=== PATIENT | female | born 1985 | race Hispanic/Latino ===

== ENCOUNTER 2017-12-28 20:07 | Emergency (ER) | payer OTHER, SELFPAY ==
[2017-12-28 23:40] LABS: #Basophils 0.1 thou/uL (0.0-0.2); #Eosinphils 0.2 thou/uL (0.0-0.7); #Lymphocytes 2.7 thou/uL (1.20-3.40); #Monocytes 0.4 thou/uL (0.11-0.59); #Neutrophils 3.6 thou/uL (1.40-6.50); %Basophils 0.8 % (0.0-1.0); %Eosinophils 2.7 % (0.0-10.0); %Lymphocytes 38.9 % (21.0-51.0); %Monocytes 5.5 % (0.0-10.0); %Neutrophils 52.1 % (42.0-75.0); Hemoglobin 12.6 g/dL (12.0-16.0); Mean Corpuscular Volume 85.8 fl (81.0-99.0); Mean Platelet Volume 6.8 fL (7.4-10.4); Platelet Count 402 thou/uL (130-400); RBC Distribution Width 11.8 % (11.5-14.5); Red Blood Cell (RBC) Count 4.19 mill/uL (4.20-5.40); White Blood Cell (WBC) Count 6.8 thou/uL (4.8-10.8)
[2017-12-28] MEDS ORDERED: Ketorolac Tromethamine 30 MG/ML VIAL ONE (23:42)
[2017-12-28] MEDS ORDERED: Metoclopramide HCl 10 MG/2 ML VIAL ONE (23:42)
[2017-12-28 23:53] LABS: BHCG - Serum Negative (NEGATIVE); Pregs Control Background? CLEAR/WHITE (CLR/WHITE); Pregs Control Bar Appear? YES (CONTROL BAR)
[2017-12-29 00:01] LABS: ALT (SGPT) 17 U/L (8-55); AST (SGOT) 19 U/L (5-34); Albumin 4.1 g/dL (3.5-5.0); Alkaline Phosphatase 88 U/L (40-150); Anion Gap 10 mmol/L (10-20); BUN (Urea Nitrogen) 12 mg/dL (7.0-18.7); Bilirubin, Total 0.3 mg/dL (0.2-1.2); Calc. Creatinine Clearance 0 mL/min (70-130); Calcium 8.9 mg/dL (7.8-10.44); Carbon Dioxide 26 mmol/L (22-29); Chloride 107 mmol/L (98-107); Estimated GFR-MDRD 78; Globulin 3.2 g/dL (2.4-3.5); Glucose 99 mg/dL (70-105); Potassium 3.9 mmol/L (3.5-5.1); Protein, Total 7.3 g/dL (6.0-8.3); Sodium 139 mmol/L (136-145)
[2017-12-29] MEDS ORDERED: Magnesium Sulfate 2 GM/100 ML BAG ONE (00:41)
[2017-12-29] MEDS ORDERED: Dexamethasone 10 MG/ML VIAL ONE (00:41)
[2017-12-29] MEDS ORDERED: Acetaminophen 500 MG TAB ONE (00:41)
[2017-12-29] MEDS ORDERED: diphenhydrAMINE 50 MG/ML VIAL ONE (00:41)
--- NOTE | 2018-01-01 22:16 | EKG ---
Test Reason : Blood Pressure : / mmHG Vent. Rate : 060 BPM Atrial Rate : 060 BPM P-R Int : 158 ms QRS Dur : 096 ms QT Int : 434 ms P-R-T Axes : 049 002 015 degrees QTc Int : 434 ms Normal sinus rhythm Low voltage QRS Borderline ECG Confirmed by BONIFACIO KEY D.O. ([id number]), communications editor JONATHAN KIRBY ([id number]) on 01/01/2018 10:14:38 PM Referred By: Confirmed By:BONIFACIO KEY D.O.
== END 2017-12-29 02:25 | disposition home or self-care (01) ==
LOC: ERS 20:07
DX: R51 Headache (principal); Z79.899 Other long term (current) drug therapy
CPT/HCPCS: 80053; 84703; 85025; 93005; 96365; 96366; 96368; 96375; J1100; J1200; J1885; J2765; J3475

== ENCOUNTER 2019-02-05 19:42 | Emergency (ER) | payer OTHER, SELFPAY ==
[2019-02-05] MEDS ORDERED: Ketorolac Tromethamine 30 MG/ML VIAL ONE ×2 (21:01→21:02)
[2019-02-05] MEDS ORDERED: diphenhydrAMINE 50 MG/ML VIAL ONE (21:01)
[2019-02-05] MEDS ORDERED: Magnesium 2 GM/50 ML BAG (IN WATER) ONE (21:01)
[2019-02-05] MEDS ORDERED: Metoclopramide HCl 10 MG/2 ML VIAL ONE (21:01)
[2019-02-05 21:24] LABS: #Basophils 0.1 thou/uL (0.0-0.2); #Eosinphils 0.3 thou/uL (0.0-0.7); #Lymphocytes 2.4 thou/uL (1.20-3.40); #Monocytes 0.5 thou/uL (0.11-0.59); #Neutrophils 5.2 thou/uL (1.40-6.50); %Basophils 0.8 % (0.0-1.0); %Lymphocytes 28.7 % (21.0-51.0); %Monocytes 5.6 % (0.0-10.0); %Neutrophils 61.8 % (42.0-75.0); Hemoglobin 10.7 g/dL (12.0-16.0); Mean Corpuscular HGB CONC 32.8 g/dL (32.0-36.0); Mean Corpuscular Hemoglobin 24.9 pg (27.0-31.0); Mean Corpuscular Volume 75.8 fL (78.0-98.0); Mean Platelet Volume 7.6 fL (7.4-10.4); Platelet Count 415 thou/uL (130-400); RBC Distribution Width 15.4 % (11.5-14.5); Red Blood Cell (RBC) Count 4.29 mill/uL (4.20-5.40); White Blood Cell (WBC) Count 8.4 thou/uL (4.8-10.8)
[2019-02-05 21:25] LABS: BHCG - Serum Negative (NEGATIVE); Pregs Control Background? CLEAR/WHITE (CLR/WHITE); Pregs Control Bar Appear? YES (CONTROL BAR)
[2019-02-05 21:33] LABS: Bilirubin Negative (Negative); Blood, Urine Negative (Negative); Clarity CLEAR (Clear); Glucose, Urine (Dipstick) Negative (Negative); Leukocyte Negative (Negative); Nitrite Negative (Negative); Protein, Urine (Dipstick) Negative (Neg-Trace)
[2019-02-05 21:48] LABS: ALT (SGPT) 14 U/L (8-55); AST (SGOT) 14 U/L (5-34); Albumin 4.2 g/dL (3.5-5.0); Alkaline Phosphatase 89 U/L (40-150); Anion Gap 14 mmol/L (10-20); BUN (Urea Nitrogen) 13 mg/dL (7.0-18.7); Bilirubin, Total 0.2 mg/dL (0.2-1.2); Calc. Creatinine Clearance 0 mL/min (70-130); Carbon Dioxide 23 mmol/L (22-29); Chloride 106 mmol/L (98-107); Estimated GFR-MDRD Greater than 90; Globulin 3.5 g/dL (2.4-3.5); Glucose 122 mg/dL (70-105); Potassium 3.8 mmol/L (3.5-5.1); Protein, Total 7.7 g/dL (6.0-8.3); Sodium 139 mmol/L (136-145)
--- NOTE | 2019-02-05 22:03 | CT ---
EXAM: Brain CT without contrast: HISTORY: Headache COMPARISON: 06/16/2004 FINDINGS: No focal mass or midline shift. No intra or extra-axial hemorrhage. Minimal sinus mucosal disease. The mastoids are clear. IMPRESSION: No mass or bleed or other significant acute intracranial process. Minimal sinus mucosal disease.
== END 2019-02-05 22:20 | disposition home or self-care (01) ==
LOC: ERS 19:42
DX: G43.909 Migraine, unspecified, not intractable, without status migrainosus (principal); E05.90 Thyrotoxicosis, unspecified without thyrotoxic crisis or storm; Z79.899 Other long term (current) drug therapy
CPT/HCPCS: 70450; 80053; 81003; 84703; 85025; 96365; 96367; 96375; J1200; J1885; J2765; J3475

== ENCOUNTER 2022-07-09 09:31 | Inpatient (IN) | payer SELFPAY ==
[2022-07-09 10:15] LABS: #Lymphocytes 0.6 thou/uL (1.20-3.40); #Monocytes 0.2 thou/uL (0.11-0.59); #Neutrophils 4.2 thou/uL (1.40-6.50); %Eosinophils 0.8 % (0.0-10.0); %Lymphocytes 12.7 % (21.0-51.0); %Monocytes 3.8 % (0.0-10.0); %Neutrophils 82.7 % (42.0-75.0); Hemoglobin 8.1 g/dL (12.0-16.0); Mean Corpuscular HGB CONC 29.7 g/dL (32.0-36.0); Mean Corpuscular Hemoglobin 19.9 pg (27.0-31.0); Mean Corpuscular Volume 67.2 fl (78.0-98.0); Mean Platelet Volume 8.6 fL (7.4-10.4); Platelet Count 355 10x3/uL (130-400); RBC Distribution Width 16.3 % (11.5-14.5); Red Blood Cell (RBC) Count 4.06 mill/uL (4.20-5.40)
[2022-07-09 10:19] LABS: BHCG - Serum Negative (NEGATIVE); Pregs Control Background? CLEAR/WHITE (CLR/WHITE); Pregs Control Bar Appear? YES (CONTROL BAR)
[2022-07-09] MEDS ORDERED: Ondansetron ODT 4 MG TAB ONE (10:36)
[2022-07-09] MEDS ORDERED: Meclizine HCl 25 MG TAB ONE (10:36)
[2022-07-09] MEDS ORDERED: Mag-Al 1200 mg/1200 mg/30 ML UDCUP ONE (10:36)
[2022-07-09 10:43] LABS: ALT (SGPT) 26 U/L (8-55); AST (SGOT) 46 U/L (5-34); Albumin 4.1 g/dL (3.5-5.0); Alkaline Phosphatase 93 U/L (40-110); Anion Gap 11 mmol/L (10-20); BUN (Urea Nitrogen) 13 mg/dL (7.0-18.7); Bilirubin, Total 0.6 mg/dL (0.2-1.2); Calc. Creatinine Clearance 0 mL/min (70-130); Calcium 8.7 mg/dL (7.8-10.44); Carbon Dioxide 22 mmol/L (22-29); Chloride 107 mmol/L (98-107); Estimated GFR 111; Globulin 3.3 g/dL (2.4-3.5); Glucose 100 mg/dL (70-105); Lipase 23 U/L (8-78); Potassium 3.9 mmol/L (3.5-5.1); Protein, Total 7.4 g/dL (6.0-8.3); Sodium 136 mmol/L (136-145)
[2022-07-09 10:45] LABS: CKMB 1.6 ng/mL (0-6.6)
[2022-07-09 10:46] LABS: Hypochromia MODERATE=16-30 cells (100X) (0-5/hpf); MDiff Complete? YES; Microcytosis MODERATE=15-30 cells (100X) (0-5/hpf); Platelet Morphology Comment Appears Adequate; Polychromasia SLIGHT = 2-3 cells (100X) (0-2/hpf); Tear Drops SLIGHT = 2-5 cells (100X) (0-1/hpf)
[2022-07-09] MEDS ORDERED: Lidocaine 2% PF 100 mg/5 ml Syringe ONE (11:04)
[2022-07-09] MEDS ORDERED: Aspirin 325 MG TAB ONE (11:06)
[2022-07-09] MEDS ORDERED: Lidocaine 2% Viscous Solution 10 ML, Aluminum & Magnesium Hydroxide 30 ML SSW SCH ×2 (11:30→23:59)
[2022-07-09] MEDS ORDERED: Nitroglycerin 0.4 MG TAB 1 EACH ONE (11:33)
[2022-07-09] MEDS ORDERED: Acetaminophen 500 MG TAB ONE (12:33)
[2022-07-09] MEDS ORDERED: Senokot S 8.6-50 MG TAB PO PRN (12:42)
[2022-07-09] MEDS ORDERED: Ondansetron PF 4 MG/2 ML Vial IVP PRN (12:42)
[2022-07-09 13:15] LABS: Iron Binding Capacity, Total 351 mcg/dL (265-497); Transferrin, Serum 281 mg/dL (180-382)
[2022-07-09 13:16] LABS: Iron 20 ug/dL (50-170)
[2022-07-09] MEDS ORDERED: IRON SUCROSE COMPLEX 100 MG/5 ML SLOW IVP ONE (13:27)
[2022-07-09 13:40] LABS: Troponin I 0.042 ng/mL (< 0.028)
[2022-07-09] MEDS ORDERED: Iron, Sodium Ferric Gluconate 125 MG in Sodium Chloride 0.9% 100 ML IVPB SCH (13:45)
[2022-07-09 14:18] VITALS: BMI 33.5
[2022-07-09 15:41] LABS: Troponin I 0.043 ng/mL (< 0.028)
[2022-07-09] MEDS: Sodium Chloride 0.9% 1,000 ML IV SCH (16:15)
[2022-07-09 17:29] LABS: SARS-CoV-2 NAA Rapid Test Not Detected (NotDetected)
[2022-07-09] MEDS: Ondansetron ODT 4 MG TAB PO PRN (18:00)
[2022-07-09] MEDS: Acetaminophen 325 MG TAB PO PRN (18:01)
[2022-07-09] MEDS: Famotidine 20 MG TAB PO SCH (21:16)
[2022-07-09] MEDS: Nitroglycerin 0.4 MG TAB (25 Tab Bottle) SL PRN (23:22)
[2022-07-10 00:10] LABS: Anion Gap 11 mmol/L (10-20); BUN (Urea Nitrogen) 11 mg/dL (7.0-18.7); Calc. Creatinine Clearance 144 mL/min (70-130); Calcium 8.1 mg/dL (7.8-10.44); Carbon Dioxide 21 mmol/L (22-29); Chloride 108 mmol/L (98-107); Estimated GFR 111; Glucose 117 mg/dL (70-105); Potassium 3.3 mmol/L (3.5-5.1); Sodium 137 mmol/L (136-145)
[2022-07-10 00:18] LABS: #Lymphocytes 0.2 thou/uL (1.20-3.40); #Monocytes 0.2 thou/uL (0.11-0.59); %Basophils 0.7 % (0.0-1.0); %Eosinophils 0.4 % (0.0-10.0); %Lymphocytes 2.9 % (21.0-51.0); %Monocytes 3.5 % (0.0-10.0); %Neutrophils 92.5 % (42.0-75.0); Hemoglobin 7.4 g/dL (12.0-16.0); Mean Corpuscular HGB CONC 29.4 g/dL (32.0-36.0); Mean Platelet Volume 8.4 fL (7.4-10.4); Platelet Count 302 10x3/uL (130-400); RBC Distribution Width 16.3 % (11.5-14.5); Red Blood Cell (RBC) Count 3.68 mill/uL (4.20-5.40); White Blood Cell (WBC) Count 6.5 10x3/uL (4.8-10.8)
[2022-07-10 00:33] LABS: CKMB 0.8 ng/mL (0-6.6)
[2022-07-10] MEDS ORDERED: Electrolyte Replacement Protocol 1 EACH FS SCH (00:45)
[2022-07-10 05:27] LABS: Cardiac Risk 2.3 (Less than 4.5)
[2022-07-10] MEDS ORDERED: Potassium Chloride 20 MEQ TAB PO SCH (06:00)
[2022-07-10] MEDS ORDERED: Magnesium 2 GM/50 ML(in water) 2 GM in Premix Bag 1 BAG IVPB SCH (08:00)
[2022-07-10] MEDS: Sodium Chloride 0.9% 1,000 ML IV SCH (08:02)
[2022-07-10] MEDS: Ferrous Sulfate 325 MG TAB PO SCH (08:03)
[2022-07-10] MEDS: Famotidine 20 MG TAB PO SCH ×2 (08:03→22:04)
[2022-07-10] MEDS: Nitroglycerin 0.4 MG TAB (25 Tab Bottle) SL PRN (08:14)
[2022-07-10 10:21] LABS: Hemoglobin 8.2 g/dL (12.0-16.0)
[2022-07-10 10:38] LABS: Potassium 3.6 mmol/L (3.5-5.1)
[2022-07-10] MEDS: Ondansetron ODT 4 MG TAB PO PRN (11:58)
[2022-07-10] MEDS: Acetaminophen 325 MG TAB PO PRN (22:08)
[2022-07-11 05:24] LABS: #Eosinphils 0.2 thou/uL (0.0-0.7); #Lymphocytes 1.8 thou/uL (1.20-3.40); #Monocytes 0.3 thou/uL (0.11-0.59); #Neutrophils 1.6 thou/uL (1.40-6.50); %Basophils 0.3 % (0.0-1.0); %Eosinophils 5.6 % (0.0-10.0); %Lymphocytes 46.4 % (21.0-51.0); %Monocytes 7.2 % (0.0-10.0); %Neutrophils 40.4 % (42.0-75.0); Hemoglobin 8.1 g/dL (12.0-16.0); Mean Corpuscular HGB CONC 29.6 g/dL (32.0-36.0); Mean Corpuscular Hemoglobin 20.9 pg (27.0-31.0); Mean Corpuscular Volume 70.5 fl (78.0-98.0); Mean Platelet Volume 9.2 fL (7.4-10.4); Platelet Count 306 10x3/uL (130-400); RBC Distribution Width 18.7 % (11.5-14.5); Red Blood Cell (RBC) Count 3.85 mill/uL (4.20-5.40); White Blood Cell (WBC) Count 3.8 10x3/uL (4.8-10.8)
[2022-07-11 05:42] LABS: Anion Gap 9 mmol/L (10-20); BUN (Urea Nitrogen) 6 mg/dL (7.0-18.7); Calc. Creatinine Clearance 148 mL/min (70-130); Calcium 7.9 mg/dL (7.8-10.44); Carbon Dioxide 23 mmol/L (22-29); Chloride 110 mmol/L (98-107); Estimated GFR 113; Glucose 99 mg/dL (70-105); Potassium 3.6 mmol/L (3.5-5.1); Sodium 138 mmol/L (136-145)
[2022-07-11] MEDS: Ferrous Sulfate 325 MG TAB PO SCH (08:21)
[2022-07-11] MEDS: Famotidine 20 MG TAB PO SCH (08:21)
[2022-07-11] MEDS: Ondansetron ODT 4 MG TAB PO PRN (11:06)
[2022-07-11 11:43] VITALS: BP 131/65; TEMP 98.2
[2022-07-11] MEDS ORDERED: Ferrous Sulfate 325 MG TAB PO SCH (17:00)
== END 2022-07-11 12:55 | disposition home or self-care (01) | DRG 392 ==
LOC: ERS 09:31 → 2SW 12:24 → OBSVTOIN 07-10 17:10
PROVIDERS: ADMIT Internal Medicine; ATTEND Hospitalist
PROC: 30233N1 Transfusion of Nonautologous Red Blood Cells into Peripheral Vein, Percutaneous Approach (ICD-10-PCS; principal; 2022-07-10)
DX: A08.4 Viral intestinal infection, unspecified (principal); I24.8 Other forms of acute ischemic heart disease; R07.89 Other chest pain; Z20.822 Contact with and (suspected) exposure to COVID-19; E03.9 Hypothyroidism, unspecified; I45.10 Unspecified right bundle-branch block; D50.9 Iron deficiency anemia, unspecified; Z88.0 Allergy status to penicillin; Z90.49 Acquired absence of other specified parts of digestive tract
CPT/HCPCS: 36415; 36430; 71046; 80048; 80053; 80061; 82553; 82728; 83540; 83550; 83690; 83735; 84132; 84443; 84466; 84484; 84703; 85014; 85018; 85025; 86850; 86900; 86901; 93005; 93010; 93306; 94760; 96365; 96375; G0378; J2001; J2916; J3475; J3490; J7050; P9016; Q0162; U0002

== ENCOUNTER 2023-08-21 23:25 | Emergency (ER) | payer SELFPAY ==
[2023-08-22 00:32] LABS: #Basophils 0.1 thou/uL (0.0-0.2); #Eosinphils 0.3 thou/uL (0.0-0.7); #Monocytes 0.4 thou/uL (0.11-0.59); #Neutrophils 4.3 thou/uL (1.40-6.50); %Basophils 0.7 % (0.0-1.0); %Lymphocytes 32.9 % (21.0-51.0); %Monocytes 5.3 % (0.0-10.0); %Neutrophils 56.7 % (42.0-75.0); Hematocrit 25.9 % (36.0-47.0); Hemoglobin 7.2 g/dL (12.0-16.0); Mean Corpuscular HGB CONC 27.8 g/dL (32.0-36.0); Mean Corpuscular Hemoglobin 19.2 pg (27.0-31.0); Mean Corpuscular Volume 69.1 fl (78.0-98.0); Mean Platelet Volume 9.8 fL (7.4-10.4); Platelet Count 468 10x3/uL (130-400); RBC Distribution Width 19.5 % (11.5-14.5); Red Blood Cell (RBC) Count 3.75 mill/uL (4.20-5.40); White Blood Cell (WBC) Count 7.6 10x3/uL (4.8-10.8)
[2023-08-22 01:00] LABS: ALT (SGPT) 10 U/L (8-55); AST (SGOT) 14 U/L (5-34); Albumin 4.1 g/dL (3.5-5.0); Alkaline Phosphatase 79 U/L (40-110); Anion Gap 14 mmol/L (10-20); BUN (Urea Nitrogen) 14 mg/dL (7.0-18.7); Bilirubin, Total 0.3 mg/dL (0.2-1.2); Calc. Creatinine Clearance 0 mL/min (70-130); Calcium 8.4 mg/dL (7.8-10.44); Carbon Dioxide 21 mmol/L (22-29); Chloride 107 mmol/L (98-107); Estimated GFR 86; Globulin 3.4 g/dL (2.4-3.5); Glucose 90 mg/dL (70-105); Lipase 54 U/L (8-78); Potassium 3.9 mmol/L (3.5-5.1); Protein, Total 7.5 g/dL (6.0-8.3); Sodium 138 mmol/L (136-145)
[2023-08-22 01:03] LABS: Troponin I Less than 0.010 ng/mL (< 0.028)
== END 2023-08-22 03:28 | disposition home or self-care (01) ==
LOC: ERS 23:25
DX: D64.9 Anemia, unspecified (principal)
CPT/HCPCS: 36415; 71045; 80053; 83690; 84484; 85025; 93005; 94760